=== PATIENT | male | born 1985 | race Caucasian/White ===

== ENCOUNTER 2016-12-23 03:06 | Emergency (ER) | payer OTHER, BC ==
[~2016-12-23 03:06] MED LIST: BACTRIM D.S. TAB1 EA PO
== END 2016-12-23 06:25 | disposition home or self-care (01) ==
LOC: ER1 03:06
DX: S62.617A Displaced fracture of proximal phalanx of left little finger, initial encounter for closed fracture (principal); F17.210 Nicotine dependence, cigarettes, uncomplicated; W23.0XXA Caught, crushed, jammed, or pinched between moving objects, initial encounter; Y92.69 Other specified industrial and construction area as the place of occurrence of the external cause; Y99.0 Civilian activity done for income or pay
CPT/HCPCS: 29125; 73130; 99283

== ENCOUNTER 2021-03-15 19:07 | Emergency (ER) | payer SELFPAY ==
[2021-03-15 22:40] LABS: BUN/CREATININE RATIO 16 (0-10)
[2021-03-15 22:52] LABS: HEMOGLOBIN 16.9 gm/dl (14.0-17.5); RED BLOOD COUNT 5.32 M/UL (4.20-5.50); WHITE BLOOD COUNT 16.3 K/UL (4.5-11.0)
[2021-03-15] MEDS ORDERED: BACTRIM DS TAB1 EACH PO (23:04)
[2021-03-15] MEDS ORDERED: CENTANY30 GM TP (23:04)
[2021-03-15] MEDS ORDERED: CEPHALEXIN500 MG PO (23:04)
== END 2021-03-15 23:21 | disposition home or self-care (01) ==
LOC: ER1 19:07
PROVIDERS: Family Medicine
DX: L03.116 Cellulitis of left lower limb (principal); F17.200 Nicotine dependence, unspecified, uncomplicated
CPT/HCPCS: 73590; 80053; 85025; 85652; 96372; 99283; J0696